=== PATIENT | female | born 1985 | race African-American/Black ===

== ENCOUNTER 2016-07-31 15:08 | Emergency (ER) | payer MEDICAID, OTHER ==
[2016-07-31 15:26] VITALS: O2SAT 100
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
[2016-07-31] MEDS ORDERED: DIPHTH/TETANUS/ACEL PERTUSSIS (BOOSTER) 0.5 ML VIAL/PFS IM ONE (15:45)
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
[2016-07-31 15:50] VITALS: O2SAT 99
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
[2016-07-31 16:00] VITALS: BP 143/74; PULSE 61; RESP 18; O2SAT 99
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
--- NOTE | 2016-07-31 16:22 | PD ---
Physical Exam Time Seen by Provider: 16:21 Data Data Last Documented VS Vital Signs Date Time Temp Pulse Resp B/P Pulse Ox O2 Delivery O2 Flow Rate FiO2 07/31/16 15:26 100 3.00 Orders Fentanyl Inj (Fentanyl Inj) (07/31/16 15:28) I-Stat Profile (07/31/16 15:28) I-Stat Creatinine (07/31/16 15:28) Complete Blood Count With Diff (07/31/16:) Prothrombin Time / Inr (Pt) (07/31/16:) Act Partial Throm Time (Ptt) (07/31/16:) Type And Screen (07/31/16:) Chest, Single Ap (07/31/16:28) Ct Brain W/O Iv Contrast(Rout) (07/31/16:28) Ct Cerv Spine W/O Contrast (07/31/16:28) Iv Access Insert/Monitor (07/31/16:28) Ecg Monitoring (07/31/16:) Oximetry (07/31/16:) Oxygen Administration (07/31/16:) [id number] (Booster) Inj (Boostrix (07/31/16 15:45) MDM Medical Record Reviewed: Yes Supervised Visit with JENNIFER: No Procedures Procedure Narrative LACERATION LOCATION: Left parietal scalp LENGTH: 4 cm NUMBER OF STITCHES/TARIK: 5 tarik REPAIR: The area of the laceration was prepped with Betadine and sterilely draped. The wound was copiously irrigated and explored without evidence of foreign body, tendon injury or neurovascular injury. The wound was closed using tarik this was a single layer repair. A sterile dressing was applied. The patient was advised to keep the dressing clean and dry. Patient tolerated the procedure well. Condition: Stable Pallavi Hammond ROBERT Jul 31, 2016 16:22
[2016-07-31 16:40] LABS: I-STAT POTASSIUM 3.5 MMOL/L (3.5-4.9)
[2016-07-31 16:57] LABS: APTT (PATIENT) 29.9 SEC (24.3-30.1); PROTHROMBIN TIME - PATIENT 11.4 SEC (9.8-11.6)
[2016-07-31 17:00] VITALS: BP 121/73; PULSE 73; RESP 18; O2SAT 99
[2016-07-31 18:00] VITALS: BP 126/81; PULSE 81; RESP 20; O2SAT 97
[2016-07-31] MEDS ORDERED: ACETAMINOPHEN 500 MG CPLT PO ONE (19:30)
== END 2016-07-31 20:15 | disposition home or self-care (01) ==
LOC: EDBD 15:08 → NEPI 15:08 → NEPE 20:15
DX: S01.01XA Laceration without foreign body of scalp, initial encounter (principal); S06.0X0A Concussion without loss of consciousness, initial encounter; M54.2 Cervicalgia; R51 Headache; X99.1XXA Assault by knife, initial encounter; Y93.9 Activity, unspecified; Y92.9 Unspecified place or not applicable; Y99.8 Other external cause status
CPT/HCPCS: 12002; 70450; 71010; 72125; 82435; 82565; 82947; 84132; 84295; 84520; 85610; 85730; 86850; 86900; 86901; 96374; 99285; 99291; J3010; 90471; G0390